=== PATIENT | female | born 1985 | race African-American/Black ===

== ENCOUNTER 2018-06-13 10:07 | Emergency (ER) | payer OTHER ==
[~2018-06-13] VITALS: Ht 165.1 cm; Wt 101.3 kg
--- NOTE | 2018-06-13 10:27 | NUR ---
PT AMBULATED TO ER BED 04
[2018-06-13 10:29] VITALS: BP 123/81
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
[2018-06-13] MEDS ORDERED: IBUPROFEN 600 MG TAB PO ONE (11:45)
[2018-06-13] MEDS ORDERED: traMADol 50 MG TAB PO ONE (11:45)
--- NOTE | 2018-06-13 11:50 | NUR ---
URINE COLLECTED AT THIS TIME.
[2018-06-13 13:24] VITALS: BP 122/75
--- NOTE | 2018-06-13 13:25 | NUR ---
Patient discharged with v/s stable. Written and verbal after care instructions given and explained. Patient alert, oriented and verbalized understanding of instructions. Ambulatory with steady gait. All questions addressed prior to discharge. ID band removed. Patient advised to follow up with PMD. Rx of VOLTAREN XR 100MG given. Patient educated on indication of medication including possible reaction and side effects. Opportunity to ask questions provided and answered.
== END 2018-06-13 13:25 | disposition home or self-care (01) ==
LOC: MED 10:07
DX: S13.9XXA Sprain of joints and ligaments of unspecified parts of neck, initial encounter (principal); S33.5XXA Sprain of ligaments of lumbar spine, initial encounter; R51 Headache; H92.01 Otalgia, right ear; V89.2XXA Person injured in unspecified motor-vehicle accident, traffic, initial encounter; Y93.89 Activity, other specified; Y92.411 Interstate highway as the place of occurrence of the external cause; Y99.8 Other external cause status
CPT/HCPCS: 71046; 72040; 72100; 81025; 99284

== ENCOUNTER 2019-12-08 05:29 | Emergency (ER) | payer OTHER ==
[~2019-12-08] VITALS: Ht 165.1 cm; Wt 105.2 kg
[2019-12-08 05:31] VITALS: BP 120/76
--- NOTE | 2019-12-08 05:37 | NUR ---
PT TAKEN TO BED 4
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
--- NOTE | 2019-12-08 05:41 | NUR ---
Dr. Hansen examining patient.
[2019-12-08] MEDS ORDERED: IBUPROFEN 600 MG TAB PO ONE (06:15)
[2019-12-08] MEDS ORDERED: cephALEXin 500 MG CAP PO ONE (06:15)
[2019-12-08 06:30] VITALS: BP 120/76
--- NOTE | 2019-12-08 06:30 | NUR ---
Patient discharged with v/s stable. Written and verbal after care instructions given and explained. Patient alert, oriented and verbalized understanding of instructions. Ambulatory with steady gait. All questions addressed prior to discharge. ID band removed. Patient advised to follow up with PMD. Rx of CEPHALEXIN AND MOTRIN given. Patient educated on indication of medication including possible reaction and side effects. Opportunity to ask questions provided and answered.
== END 2019-12-08 06:30 | disposition home or self-care (01) ==
LOC: MED 05:29
DX: A46 Erysipelas (principal)
CPT/HCPCS: 99283; 99284